=== PATIENT | male | born 1990 | race Caucasian/White ===

== ENCOUNTER 2017-01-25 09:55 | Emergency (ER) | payer OTHER, MEDICAID ==
[2017-01-25 10:04] VITALS: BP 132/93; PULSE 66; RESP 16; TEMP 98.2; O2SAT 97
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
== END 2017-01-25 11:48 | disposition home or self-care (01) ==
DX: S16.1XXA Strain of muscle, fascia and tendon at neck level, initial encounter (principal); V49.59XA Passenger injured in collision with other motor vehicles in traffic accident, initial encounter; Y92.410 Unspecified street and highway as the place of occurrence of the external cause